=== PATIENT | female | born 1950 | race Caucasian/White ===

== ENCOUNTER 2020-09-23 07:35 | Day surgery (SDC) | payer OTHER, MEDICARE ==
[~2020-09-23] VITALS: Ht 167.6 cm; Wt 92.0 kg
[2020-09-23] MEDS ORDERED: METOPROLOL TARTRATE 50 MG TABLET PO PRN (09:00)
[2020-09-23] MEDS ORDERED: 0.9% SODIUM CHLORIDE 10 ML SYRINGE IVP PRN (09:00)
[2020-09-23] MEDS ORDERED: NITROGLYCERIN 400 MCG/SUBLINGUAL SPRAY 4.9 GM BOTTLE SL ONE (11:00)
[2020-09-23] MEDS ORDERED: METOPROLOL TARTRATE 5 MG/5 ML VIAL ONE (11:00)
== END 2020-09-23 11:45 | disposition home or self-care (01) ==
LOC: SURGERY 07:35 → EDSTATUS 09:00 → SURGERY 11:45
PROVIDERS: ATTEND Internal Medicine Pulmonary Disease
DX: R07.9 Chest pain, unspecified (principal)
CPT/HCPCS: 75574; 93005; J3490